=== PATIENT | male | born 1950 | race Caucasian/White ===

== ENCOUNTER → 2019-07-13 | Outpatient (CLI) | payer OTHER ==
[~2019-07-13] MED LIST: ACET325 PO; ACYC400; ACYC400 PO; ASCO500; ASPI81EC; BUPR150ER PO; CALCIUM CHOLECALCIFE; CEPH500 PO; Cymbalta30 MG; DOXA2; DOXA4 PO; DOXY100 PO; FERR325 PO; FISH1000 PO; FURO40; HYDACE10B PO; HYDACE5 PO; IRBHYD300; LEVFLO500 PO; MELO7.5 PO; METF500; METO100ER; METO25ER PO; MORP30 PO; MORP50ER PO; MULVITMINF; MULVITMINF PO; NAPR550 PO; OLME20; OXYACE5T PO; PARO30 PO; PIRO20; POTCHL20ER; RXHYDACE PO; SAW PALMETTO; TIOT18 IH; WARF4 PO
[2019-07-13 16:41] LABS: Bilirubin, Urine Neg (Neg); Blood, Urine Neg (Neg); Glucose Qualitative, Urine Neg (Neg); Ketones, Urine Neg (Neg); Leukocyte Esterase, Urine Neg (Neg); Nitrite, Urine Neg (Neg); Protein, Urine Neg (Neg); Specific Gravity, Urine 1.015 (1.003-1.022); Urobilinogen, Urine NORM (Normal)
[2019-07-13 16:47] LABS: Appearance, Urine Clear (Clear); Color, Urine Yellow (P-Yellow)
== END | disposition home or self-care (01) ==
LOC: LAB SHORT 15:56 → LAB 15:56
PROVIDERS: Internal Medicine
DX: I10 Essential (primary) hypertension (principal)
CPT/HCPCS: 81003; 82570; 84156

== ENCOUNTER 2020-01-16 08:37 | Day surgery (SDC) | payer OTHER ==
[~2020-01-16] VITALS: Ht 182.9 cm; Wt 132.0 kg
[~2020-01-16 08:37] MED LIST changes: +ABILIFY MYCITE PO; +AMLODIPINE-OLM1 EAC4 PO; +ATOR20 PO; +Aspir 8181 MG PO; +CHLO25B PO; +COMBIVENT RESPIM4 G1 INH; +FLUT1DIS8 INH; +IPRAT-ALBUT 0.5-3 ML INH; +K-Dur10 MEQ PO; +LOSA50 PO; +NITR.4SL SL; +Nitroglycerin1 EAC3 TOP; +OMEP20ER PO; +PROAIR RESPICL90 MCG INH; +PROZAC20 M1 PO; +SPIR25 PO; +TIOT18 INH; +VALA500 PO
--- NOTE | 2020-01-16 12:40 | NUR ---
DISCHARGE INSTRUCTION GIVEN TO PATIENT. DENIES ANY DISCOMFORT AT SITE. SITE SOFT AND NONTENDER NO SWELLING NO BLEEDING.
--- NOTE | 2020-01-16 13:04 | NUR ---
PATIENT ARRIVED TO RECVERY ROOM VIA RECLINER. A&O. TR BAND IN PLACE WITH 10 CC OF AIR. SITE CLEAR. PATIENT DENIES DISCOMFORT.
--- NOTE | 2020-01-16 15:56 | NUR ---
PATIENT DRESSED WITH HELP FROM . IV DCED WITH CATHETER INTACT. PATIENT AND VERBALIZED UNDERSTANDING OF DISCHARGE INSTRUCTIONS AND DENIED ANY QUESTIONS. TR BAND REMOVED FROM RIGHT RADIAL SITE. SITE SOFT AND NONTENDER. DRESSING APPLIED AND ARM BOARD PLACED. A SLING WAS PLACED TO RIGHT ARM WITH INSTRUCTION. IV SITE DCED WITH CATHETER INTACT. PATIENT DISCHARGED VIA WHEEL CHAIR WITH .
== END 2020-01-16 22:49 | disposition home or self-care (01) ==
LOC: MHTC 08:37
PROC: 4A023N7 Measurement of Cardiac Sampling and Pressure, Left Heart, Percutaneous Approach (ICD-10-PCS; principal; 2020-01-16)
PROC: B2111ZZ Fluoroscopy of Multiple Coronary Arteries using Low Osmolar Contrast (ICD-10-PCS; principal; 2020-01-16)
PROC: B2151ZZ Fluoroscopy of Left Heart using Low Osmolar Contrast (ICD-10-PCS; principal; 2020-01-16)
DX: I25.119 Atherosclerotic heart disease of native coronary artery with unspecified angina pectoris (principal); I47.1 Supraventricular tachycardia; I10 Essential (primary) hypertension; G43.909 Migraine, unspecified, not intractable, without status migrainosus; J44.9 Chronic obstructive pulmonary disease, unspecified; G47.33 Obstructive sleep apnea (adult) (pediatric); Z79.899 Other long term (current) drug therapy; Z79.51 Long term (current) use of inhaled steroids; Z87.891 Personal history of nicotine dependence
CPT/HCPCS: 93005; 93010; 93458; 99152; C1769; C1894; J1644; J2250; J3010; J7030; J7050; Q9967

== ENCOUNTER → 2020-10-28 | Outpatient (CLI) | payer OTHER ==
[2020-10-31 09:26] LABS: Stool Occult Bld Immuno 1 Negative (NEGATIVE)
== END | disposition home or self-care (01) ==
LOC: LAB 15:00 → LAB SHORT 15:00
PROVIDERS: Physician Assistant
DX: Z12.11 Encounter for screening for malignant neoplasm of colon (principal)
CPT/HCPCS: 82274

== ENCOUNTER 2021-09-04 06:34 | Day surgery (SDC) | payer OTHER ==
[~2021-09-04] VITALS: Ht 188 cm; Wt 115.3 kg
--- NOTE | 2021-09-04 08:46 | NUR ---
09/04/21 0846 Den Leo BUPIVACAINE 0.5% 30 MLS MIXED W/ EPI 0.15 ML TO MAKE BUPIVACAINE 0.5% 1:200,000 FOR INJECTION AT OPSITE BY DR ALCALA.
--- NOTE | 2021-09-04 10:32 | NUR ---
09/04/21 1032 CELESTE ANDINO TRANSFER OF CARE FROM [facility] TO [facility] AT 1031. END NOTE [facility].RDS
== END 2021-09-04 10:52 | disposition home or self-care (01) ==
LOC: ORSCSDS 06:34
PROVIDERS: Orthopaedic Surgery
PROC: 0JBM0ZX Excision of Left Upper Leg Subcutaneous Tissue and Fascia, Open Approach, Diagnostic (ICD-10-PCS; principal; 2021-09-04 08:15)
DX: M71.352 Other bursal cyst, left hip (principal); I10 Essential (primary) hypertension; G47.33 Obstructive sleep apnea (adult) (pediatric); J44.9 Chronic obstructive pulmonary disease, unspecified; Z87.891 Personal history of nicotine dependence; Z79.899 Other long term (current) drug therapy
CPT/HCPCS: 88304; A9270; J0171; J0690; J1100; J2250; J2405; J2704; J3010; J7120

== ENCOUNTER 2022-09-15 17:04 | Emergency (ER) | payer OTHER ==
[~2022-09-15] VITALS: Ht 188 cm; Wt 108.9 kg
[2022-09-15 18:04] LABS: BASOPHILS ABSOLUTE AUTO 0.03 K/mm3 (0.00-0.23); BASOPHILS PERCENT AUTO 0 % (0-2); EOSINOPHILS ABSOLUTE AUTO 0.06 K/mm3 (0.00-0.68); EOSINOPHILS PERCENT AUTO 1 % (0-6); Hematocrit 46.1 % (37.0-53.0); Hemoglobin 17.1 g/dL (13.5-17.5); IMMATURE GRAN ABSOLUTE AUTO 0.06 K/mm3 (0.00-0.10); IMMATURE GRAN PERCENT AUTO 1 % (0-1); LYMPHOCYTES ABSOLUTE AUTO 2.67 K/mm3 (0.84-5.20); LYMPHOCYTES PERCENT AUTO 22 % (21-46); MONOCYTES ABSOLUTE AUTO 0.99 K/mm3 (0.16-1.47); MONOCYTES PERCENT AUTO 8 % (4-13); Mean Corpuscular HGB 33.5 pg (26.0-34.0); Mean Corpuscular HGB Conc 37.1 g/dL (31.5-36.5); Mean Corpuscular Volume 90 fL (80-100); Mean Platelet Volume 10.1 fL (9.1-12.4); NEUTROPHILS ABSOLUTE AUTO 8.15 K/mm3 (1.96-9.15); NEUTROPHILS PERCENT AUTO 68 % (41-73); Platelet Count 247 K/mm3 (150-400); RDW Coefficient Variation 13.2 % (11.7-14.2); RDW Standard Deviation 43.8 fL (35.1-46.3); White Blood Cell Count 11.96 K/mm3 (4.00-11.30)
[2022-09-15 18:23] LABS: Albumin, Blood 3.9 g/dL (3.4-5.0); Albumin/Globulin Ratio 0.8 (0.8-1.8); Bilirubin, Total 1.1 mg/dL (0.1-1.0); Bun/Creatinine Ratio 17.1 (12.0-20.0); Calcium, Blood 9.4 mg/dL (8.5-10.1); Creatinine, Blood 1.58 mg/dL (0.60-1.20); Globulin, Blood 4.8 g/dL (2.2-4.0); Magnesium, Blood 1.9 mg/dL (1.6-2.4); Potassium, Blood 2.5 mmol/L (3.5-5.5); Total Protein, Blood 8.7 g/dL (6.4-8.2)
[2022-09-15 23:00] VITALS: BP 117/93
== END 2022-09-15 23:08 | disposition home or self-care (01) ==
LOC: ER 17:04
PROVIDERS: Physician Assistant
DX: E87.6 Hypokalemia (principal); N28.9 Disorder of kidney and ureter, unspecified; J44.9 Chronic obstructive pulmonary disease, unspecified; I10 Essential (primary) hypertension
CPT/HCPCS: 71046; 80053; 83735; 85025; 93005; 93010; 96374; 99284-25; A9270; J3480; J7030

== ENCOUNTER 2022-10-13 16:56 | Emergency (ER) | payer OTHER ==
[~2022-10-13] VITALS: Ht 188 cm; Wt 111.1 kg
[2022-10-13 17:59] LABS: BASOPHILS ABSOLUTE AUTO 0.03 K/mm3 (0.00-0.23); BASOPHILS PERCENT AUTO 0 % (0-2); EOSINOPHILS ABSOLUTE AUTO 0.09 K/mm3 (0.00-0.68); EOSINOPHILS PERCENT AUTO 1 % (0-6); Hematocrit 44.6 % (37.0-53.0); Hemoglobin 15.8 g/dL (13.5-17.5); IMMATURE GRAN ABSOLUTE AUTO 0.03 K/mm3 (0.00-0.10); IMMATURE GRAN PERCENT AUTO 0 % (0-1); LYMPHOCYTES ABSOLUTE AUTO 2.55 K/mm3 (0.84-5.20); LYMPHOCYTES PERCENT AUTO 30 % (21-46); MONOCYTES ABSOLUTE AUTO 0.79 K/mm3 (0.16-1.47); MONOCYTES PERCENT AUTO 9 % (4-13); Mean Corpuscular HGB 33.1 pg (26.0-34.0); Mean Corpuscular HGB Conc 35.4 g/dL (31.5-36.5); Mean Corpuscular Volume 94 fL (80-100); NEUTROPHILS ABSOLUTE AUTO 5.14 K/mm3 (1.96-9.15); NEUTROPHILS PERCENT AUTO 60 % (41-73); Platelet Count 205 K/mm3 (150-400); RDW Coefficient Variation 12.9 % (11.7-14.2); RDW Standard Deviation 45.1 fL (35.1-46.3); Red Blood Cell Count 4.77 M/mm3 (4.30-5.90); White Blood Cell Count 8.63 K/mm3 (4.00-11.30)
[2022-10-13 18:13] LABS: C-REACTIVE PROTEIN, EXT RANGE 0.917 mg/dL (0.000-0.300)
[2022-10-13 18:16] LABS: Albumin, Blood 3.7 g/dL (3.4-5.0); Albumin/Globulin Ratio 0.9 (0.8-1.8); Bilirubin, Total 0.6 mg/dL (0.1-1.0); Bun/Creatinine Ratio 12.7 (12.0-20.0); Calcium, Blood 8.8 mg/dL (8.5-10.1); Creatinine, Blood 1.1 mg/dL (0.60-1.20); Globulin, Blood 3.9 g/dL (2.2-4.0); Potassium, Blood 4.2 mmol/L (3.5-5.5); Total Protein, Blood 7.6 g/dL (6.4-8.2)
[2022-10-13] MEDS ORDERED: ZANAFLEX413 PO (20:40)
[2022-10-13] MEDS ORDERED: Potassium Chlo20 ME1 PO (20:41)
[2022-10-13] MEDS ORDERED: VENLAFAXINE HC225 MG PO (20:41)
[2022-10-13 22:00] VITALS: BP 121/82
== END 2022-10-13 23:00 | disposition home or self-care (01) ==
LOC: ER 16:56
PROVIDERS: Physician Assistant
DX: H54.7 Unspecified visual loss (principal); I10 Essential (primary) hypertension; E78.5 Hyperlipidemia, unspecified; J44.9 Chronic obstructive pulmonary disease, unspecified; Z79.899 Other long term (current) drug therapy; Z79.82 Long term (current) use of aspirin; Z96.641 Presence of right artificial hip joint; Z96.612 Presence of left artificial shoulder joint; Z96.611 Presence of right artificial shoulder joint
CPT/HCPCS: 70450; 80053; 85025; 86140; 93005; 93010; 99284-25

== ENCOUNTER 2023-09-09 23:07 | Inpatient (IN) | payer OTHER ==
[~2023-09-09] VITALS: Ht 180.3 cm; Wt 106.6 kg
[~2023-09-09 23:07] MED LIST changes: -ATOR20 PO; +ATOR40TA PO; +Potassium Chlo20 ME1 PO; +VENLAFAXINE HC225 MG PO; +ZANAFLEX413 PO
[2023-09-09] MEDS ORDERED: NS 1,000 ML IV SCH (23:20)
[2023-09-09 23:36] LABS: BASOPHILS ABSOLUTE AUTO 0.03 K/mm3 (0.00-0.23); BASOPHILS PERCENT AUTO 0 % (0-2); EOSINOPHILS ABSOLUTE AUTO 0.08 K/mm3 (0.00-0.68); EOSINOPHILS PERCENT AUTO 1 % (0-6); Hematocrit 38.6 % (37.0-53.0); Hemoglobin 13.4 g/dL (13.5-17.5); IMMATURE GRAN ABSOLUTE AUTO 0.01 K/mm3 (0.00-0.10); IMMATURE GRAN PERCENT AUTO 0 % (0-1); LYMPHOCYTES ABSOLUTE AUTO 1.26 K/mm3 (0.84-5.20); LYMPHOCYTES PERCENT AUTO 17 % (21-46); MONOCYTES ABSOLUTE AUTO 0.55 K/mm3 (0.16-1.47); MONOCYTES PERCENT AUTO 8 % (4-13); Mean Corpuscular HGB 32.1 pg (26.0-34.0); Mean Corpuscular HGB Conc 34.7 g/dL (31.5-36.5); Mean Corpuscular Volume 92 fL (80-100); Mean Platelet Volume 9.9 fL (9.1-12.4); NEUTROPHILS ABSOLUTE AUTO 5.42 K/mm3 (1.96-9.15); NEUTROPHILS PERCENT AUTO 74 % (41-73); Platelet Count 168 K/mm3 (150-400); RDW Coefficient Variation 13.8 % (11.7-14.2); RDW Standard Deviation 46.6 fL (35.1-46.3); Red Blood Cell Count 4.18 M/mm3 (4.30-5.90); White Blood Cell Count 7.35 K/mm3 (4.00-11.30)
[2023-09-09 23:59] LABS: Albumin, Blood 3.4 g/dL (3.4-5.0); Albumin/Globulin Ratio 0.9 (0.8-1.8); Bilirubin, Total 0.9 mg/dL (0.1-1.0); Bun/Creatinine Ratio 16.1 (12.0-20.0); Calcium, Blood 7.2 mg/dL (8.5-10.1); Creatinine, Blood 0.99 mg/dL (0.60-1.20); Globulin, Blood 3.9 g/dL (2.2-4.0); Total Protein, Blood 7.3 g/dL (6.4-8.2)
[2023-09-10] LABS: Magnesium, Blood 0.7 mg/dL (1.6-2.4)
[2023-09-10] MEDS ORDERED: Magnesium Sulf 2 GM/Water 50ML 50 ML IV ONE ×2 (00:13→13:55)
[2023-09-10] MEDS ORDERED: TAMSULOSIN HCL0.4 M1 PO (00:35)
[2023-09-10] MEDS ORDERED: QUETIAPINE FUMA5012 PO (00:37)
[2023-09-10] MEDS ORDERED: ALLO300 PO (00:37)
[2023-09-10] MEDS ORDERED: VENL75ER PO (00:37)
[2023-09-10] MEDS ORDERED: Acetaminophen 325 MG TABLET PO PRN (01:10)
[2023-09-10 01:44] LABS: Source, Urine Voided
[2023-09-10 01:48] LABS: Bilirubin, Urine Neg (Neg); Blood, Urine Neg (Neg); Glucose Qualitative, Urine Neg (Neg); Ketones, Urine Neg (Neg); Leukocyte Esterase, Urine Neg (Neg); Nitrite, Urine Neg (Neg); Protein, Urine 1+ (Neg); Urobilinogen, Urine 3+ (Normal)
[2023-09-10] MEDS ORDERED: Albuterol HFA200 ACT/6.7 GM INH INH SCH (01:55)
[2023-09-10 02:01] LABS: Appearance, Urine Clear (Clear); Color, Urine Yellow (P-Yellow)
[2023-09-10] MEDS ORDERED: AMLO10 PO (02:26)
[2023-09-10] MEDS ORDERED: TIZA4 PO (02:27)
[2023-09-10] MEDS ORDERED: SPIR25 PO (02:28)
[2023-09-10] MEDS ORDERED: LOVA40 PO (02:28)
[2023-09-10] MEDS ORDERED: CLOP75 PO (02:31)
[2023-09-10 02:35] VITALS: BP 157/107
[2023-09-10] MEDS ORDERED: TRAM50 PO (02:35)
[2023-09-10] MEDS ORDERED: Nitroglycerin Patch 0.2MG / HR TOP SCH (03:00)
[2023-09-10 05:26] LABS: BASOPHILS ABSOLUTE AUTO 0.02 K/mm3 (0.00-0.23); BASOPHILS PERCENT AUTO 0 % (0-2); EOSINOPHILS ABSOLUTE AUTO 0.01 K/mm3 (0.00-0.68); EOSINOPHILS PERCENT AUTO 0 % (0-6); Hematocrit 39.2 % (37.0-53.0); Hemoglobin 13.5 g/dL (13.5-17.5); IMMATURE GRAN ABSOLUTE AUTO 0.03 K/mm3 (0.00-0.10); IMMATURE GRAN PERCENT AUTO 0 % (0-1); LYMPHOCYTES ABSOLUTE AUTO 1.28 K/mm3 (0.84-5.20); LYMPHOCYTES PERCENT AUTO 18 % (21-46); MONOCYTES ABSOLUTE AUTO 0.59 K/mm3 (0.16-1.47); MONOCYTES PERCENT AUTO 8 % (4-13); Mean Corpuscular HGB 31.6 pg (26.0-34.0); Mean Corpuscular HGB Conc 34.4 g/dL (31.5-36.5); Mean Corpuscular Volume 92 fL (80-100); Mean Platelet Volume 9.7 fL (9.1-12.4); NEUTROPHILS ABSOLUTE AUTO 5.28 K/mm3 (1.96-9.15); NEUTROPHILS PERCENT AUTO 73 % (41-73); Platelet Count 141 K/mm3 (150-400); RDW Coefficient Variation 13.6 % (11.7-14.2); RDW Standard Deviation 45.8 fL (35.1-46.3); Red Blood Cell Count 4.27 M/mm3 (4.30-5.90); White Blood Cell Count 7.21 K/mm3 (4.00-11.30)
--- NOTE | 2023-09-10 06:14 | NUR ---
Shift Summary Pt admitted to this unit from ED for Hypomagnesemia. He was at [facility] and fell on his bottom and wasn't able to get up for 30 minutes until EMS arrived. He rcvd 1 bag of IV Mag in the ED. He is AOx4, still weak and he is shakey. He is currently on bedrest but can increase his activity level as he starts feeling better, his BL is indepenent with a cane. He is on Tele running SR in the 70's with PACs and PVCs. No events called in from telemetry. I put a nitro patch on his chest as ordered, he wears a patch 12 hours on and 12 hours off at home, he states for blood pressure. He is having difficulty sleeping.
[2023-09-10 06:19] LABS: Albumin, Blood 3.3 g/dL (3.4-5.0); Albumin/Globulin Ratio 0.9 (0.8-1.8); Bilirubin, Total 0.8 mg/dL (0.1-1.0); Bun/Creatinine Ratio 15.6 (12.0-20.0); Calcium, Blood 7.1 mg/dL (8.5-10.1); Creatinine, Blood 0.83 mg/dL (0.60-1.20); Globulin, Blood 3.8 g/dL (2.2-4.0); Magnesium, Blood 1.3 mg/dL (1.6-2.4); Phosphorus, Blood 2.9 mg/dL (2.5-4.9); Potassium, Blood 3.4 mmol/L (3.5-5.5); Total Protein, Blood 7.1 g/dL (6.4-8.2)
[2023-09-10 07:19] VITALS: BP 162/95
[2023-09-10] MEDS ORDERED: Potassium Chloride 20 MEQ TabCR PO ONE ×2 (07:45→13:55)
[2023-09-10] MEDS ORDERED: CALCIUM GLUC IN NACL, ISO-OSM 50 ML IV ONE (07:45)
[2023-09-10] MEDS ORDERED: TraMADol HCl 50 MG Tab PO PRN (07:50)
[2023-09-10] MEDS ORDERED: TiZANidine HCl 4 MG Tab PO PRN (07:50)
[2023-09-10] MEDS ORDERED: Pravastatin Sodium 20 MG Tab PO SCH (09:00)
[2023-09-10] MEDS ORDERED: Enoxaparin 40 MG/0.4 ML SYR SC SCH (09:00)
[2023-09-10] MEDS ORDERED: Clopidogrel Bisulfate 75 MG Tab PO SCH (09:00)
[2023-09-10] MEDS ORDERED: Venlafaxine HCl 75 MG CapCR PO SCH ×2 (09:00)
[2023-09-10] MEDS ORDERED: Tamsulosin HCl 0.4 MG Cap PO SCH (09:00)
[2023-09-10] MEDS ORDERED: Allopurinol 300 MG Tab PO SCH (09:00)
[2023-09-10] MEDS ORDERED: AmLODIPine Besylate 5 MG Tab PO SCH (09:00)
[2023-09-10] MEDS ORDERED: NS 250 ML IV PRN (09:20)
[2023-09-10 13:39] LABS: Potassium, Blood 3.5 mmol/L (3.5-5.5)
[2023-09-10 15:15] VITALS: BP 158/100
[2023-09-10 19:32] VITALS: BP 169/104
--- NOTE | 2023-09-10 19:34 | NUR ---
SUMMARY- PT A/O X4. CONT WITH INTERMITTANT TREMORS AND SHAKINESS. MAGNESIUM AND KCL REPLACEMENT TODAY. GOT UP TO THE BSC 2 GAIT WALKER SBA. PT ABLE TO STAND WITH HELP BALANCING, VERY WEAK AND SHAKI. BEDREST MOST OF THE DAY. PAIN IN PELVIC REGION. X-RAY COMPLETED THIS PM. MEDICATED ONCE TODAY WITH ULTRAM AND XANIFLEX, PT STATES HELPFUL FOR DISCOMRORT. REPORTED TO NOC [facility]
[2023-09-10] MEDS ORDERED: Albuterol HFA200 ACT/6.7 GM INH INH PRN (20:05)
[2023-09-10] MEDS ORDERED: QUEtiapine Fumarate 50 MG TAB PO SCH (21:00)
[2023-09-10] MEDS ORDERED: Ondansetron HCl 2 MG / ML 2ML Vial IV PRN (22:30)
[2023-09-11 03:23] VITALS: BP 157/95
[2023-09-11 04:44] LABS: Bun/Creatinine Ratio 19.9 (12.0-20.0); Calcium, Blood 7.8 mg/dL (8.5-10.1); Creatinine, Blood 0.7 mg/dL (0.60-1.20); Magnesium, Blood 1.3 mg/dL (1.6-2.4); Potassium, Blood 3.5 mmol/L (3.5-5.5)
--- NOTE | 2023-09-11 06:12 | NUR ---
SHIFT SUMMARY 73 YR M ADMITTED ON 09/10/23. FULL CODE. NO ACUTE CHANGES THIS SHIFT. PT HAD SOME N/V EARLY IN SHIFT. HOSPITALIST NOTIFIED AND ORDER OBTAINED FOR ZOFRAN. PT STATED HE FELT MUCH BETTER AFTER RECEIVING IT AND HE SLEPT FOR THE REST OF THE NIGHT. HE IS PLEASANT AND COOPERATIVE WITH CARE. BED IN LOW POSITION AND CALL LIGHT IN REACH. WILL CONTINUE TO MONITOR.
[2023-09-11] MEDS ORDERED: Potassium Chloride 20 MEQ TabCR PO ONE (07:35)
[2023-09-11] MEDS ORDERED: Magnesium Sulf 2 GM/Water 50ML 50 ML IV ONE (07:35)
[2023-09-11 07:58] VITALS: BP 146/93
[2023-09-11] MEDS ORDERED: Lisinopril 10 MG Tab PO SCH (09:00)
[2023-09-11] MEDS ORDERED: Aspirin 81 MG Chew PO SCH (09:00)
[2023-09-11] MEDS ORDERED: ASPI81CH PO (11:45)
[2023-09-11] MEDS ORDERED: Prinivil10 MG PO (11:46)
[2023-09-11] MEDS ORDERED: MAGNESIUM OXID500 MG (11:46)
--- NOTE | 2023-09-11 13:49 | NUR ---
REGAURDING DISCHARGE- CALLED DR BARNARD TO NOTIFY THAT PT IS UNABLE TO AMBULATE WITHOUT GROSS MOTOR TREMORS PREVENTING PT FROM AMBULATING. DR ROJAS'D HOLD ON DISCHARGE UNTIL PHYSICAL THERAPY EVAL. HE IS GOING TO DC THE TIXANADINE AND GIVE HIM TIME TODAY TO RECOUPE AND RE EVAL IN AM.
[2023-09-11 15:27] VITALS: BP 126/89
--- NOTE | 2023-09-11 15:58 | NUR ---
SUMMARY- PT A/O X4. MAGNESIUM THIS AM WAS 1.3, ADMIN 2GM MG IV. ORDERS FOR DIACHARGE WRITTEN BUT DR BARNARD WAS NOT AWARE OF PT'S CONTINUED ACTIVITY DEFICITS IN RELATION TO GROSS MOTOR TREMOR BECAUSE WHEN DR BARNARD EVALUATED PT, HE STOOD UP STEADY AND DID NOT SEE THE SAME GROSS MOTOR TREMOR THAT RN EVALUATED. PHYSICAL THERAPY ASSESSED PT ON SAT AND RECOMMENDED SNF WITH CURRENT MOBILITY ABILITY. DR BARNARD OK FOR PT TO STAY ANOTHER NIGHT AND RE-EVAL IN THE AM. PT TOLERATING FOOD AND FLUIDS. USING URINAL, AND 2 PERSON PIVOT TX TO BSC. NOT FEELING STONG ENOUGH TO CARE FOR SELF AT HOME, HE HAS NOONE TO HELP HIM - CHRONIC BACK PAIN MANAGED WITH TRAMADOL IN AM AND XANIFLEX WHICH NOW DC'D SO IT DOESNT HINDER PT'S STRENGTH IN HEALING. WILL REPORT JONO CONNOLLY
[2023-09-11 19:37] VITALS: BP 122/93
--- NOTE | 2023-09-11 21:07 | NUR ---
2018 PT LYING IN BED, AWAKE, REPORTS BACK PAIN OF 5/10, GAVE ULTRAM, WILL EVAL FOR EFFECT. NO OTHER APPARENT SIGNS OF DISTRESS. CALL LIGHT IS IN REACH.
--- NOTE | 2023-09-12 02:39 | NUR ---
0000 PT LYING IN BED, AWAKE, WATCHING TV. NO APPARENT SIGNS OF DISTRESS. PT DENIES NEED FOR ANYTHING AT THIS TIME. CALL LIGHT IS IN REACH.
--- NOTE | 2023-09-12 02:40 | NUR ---
09/11/23 2200 PT LYING IN BED, AWAKE, WATCHING TV. NO APPARENT SIGNS OF DISTRES. CALL LIGHT IS IN REACH.
--- NOTE | 2023-09-12 02:40 | NUR ---
0200 PT LYING IN BED, EYES CLOSED, APPEARS TO BE RESTING. BREATHING IS EVEN, UNLABORED. NO APPARENT SIGNS OF DISTRESS. CALL LIGHT IS IN REACH.
--- NOTE | 2023-09-12 03:53 | NUR ---
PT LYING IN BED, EYES CLOSED, APPEARS TO BE RESTING. BREATHING IS EVEN, UNLABORED. NO APPARENT SIGNS OF DISTRESS. CALL LIGHT IS IN REACH.
--- NOTE | 2023-09-12 03:53 | NUR ---
PT IS AAO X 4, ON RA. REPORTS CHRONIC BACK PAIN, GOT ULTRAM AT HS.
[2023-09-12 04:51] VITALS: BP 129/82
[2023-09-12 05:18] LABS: Bun/Creatinine Ratio 21.8 (12.0-20.0); Calcium, Blood 8.2 mg/dL (8.5-10.1); Creatinine, Blood 0.78 mg/dL (0.60-1.20); Magnesium, Blood 2.1 mg/dL (1.6-2.4); Potassium, Blood 3.7 mmol/L (3.5-5.5)
--- NOTE | 2023-09-12 05:35 | NUR ---
PT LYING IN BED, EYES CLOSED, APPEARS TO BE RESTING. BREATHING IS EVEN, UNLABORED. NO APPARENT SIGNS OF DISTRESS. CALL LIGHT IS IN REACH. NO OTHER CHANGES THIS SHIFT.
[2023-09-12 07:57] VITALS: BP 121/94
--- NOTE | 2023-09-12 13:51 | NUR ---
PER PT AND STRIKE PLANNING APPLICATIONS, PT DID NOT HAVE TREMORS WHEN HE AMBULATED TO THE BATHROOM AND DURING SHOWER
[2023-09-12 15:28] VITALS: BP 133/85
--- NOTE | 2023-09-12 16:16 | NUR ---
PT DISCHARGED HOME WITH HOME HEALTH. ALERT AND ORIENTED X4, ABLE TO MAKE NEEDS KNOWN. DISCHARGE INSTRUCTIONS DISCUSSED WITH PT. NO QUESTIONS OR CONCERNS AT THIS TIME. PT TAKEN DOWN TO MEET HIS RIDE BY WHEELCHAIR
== END 2023-09-12 16:06 | disposition home health service (06) | DRG 641 ==
LOC: ER 23:07 → MEDS 09-10 01:10 → ENPENDDIS 09-11 11:22 → MEDS 09-11 21:32
PROVIDERS: Emergency Medicine; Family Medicine Adult Medicine; Internal Medicine; ADMIT Student in an Organized Health Care Education/Training Program
DX: E83.42 Hypomagnesemia (principal); F32.A Depression, unspecified; R53.1 Weakness; K21.9 Gastro-esophageal reflux disease without esophagitis; I10 Essential (primary) hypertension; E78.5 Hyperlipidemia, unspecified; M62.838 Other muscle spasm; E87.6 Hypokalemia; E83.51 Hypocalcemia; T47.1X5A Adverse effect of other antacids and anti-gastric-secretion drugs, initial encounter; J44.9 Chronic obstructive pulmonary disease, unspecified; M19.90 Unspecified osteoarthritis, unspecified site; Z86.718 Personal history of other venous thrombosis and embolism; Z87.891 Personal history of nicotine dependence; Z85.820 Personal history of malignant melanoma of skin; Z86.14 Personal history of Methicillin resistant Staphylococcus aureus infection; Z79.899 Other long term (current) drug therapy
CPT/HCPCS: 36415; 73502; 80048; 80053; 82330; 82550; 83605; 83735; 84100; 84132; 84484; 85025; 93005; 93010; 94760; 96361; 96374; 97116; 97161; 97530; 99285-25; A9270; J0612; J2405; J3475; J7030

== ENCOUNTER 2023-11-25 11:51 | Emergency (ER) | payer OTHER ==
[~2023-11-25] VITALS: Ht 182.9 cm; Wt 104.3 kg
[~2023-11-25 11:51] MED LIST changes: +ALLO300 PO; +AMLO10 PO; +ASPI81CH PO; +CLOP75 PO; +LOVA40 PO; +MAGNESIUM OXID500 MG; +Prinivil10 MG PO; +QUETIAPINE FUMA5012 PO; +TAMSULOSIN HCL0.4 M1 PO; +TIZA4 PO; +TRAM50 PO; +VENL75ER PO
[2023-11-25] MEDS ORDERED: Ketorolac Tromethamine 30mg Vial IV ONE (12:30)
[2023-11-25 12:55] LABS: BASOPHILS ABSOLUTE AUTO 0.03 K/mm3 (0.00-0.23); BASOPHILS PERCENT AUTO 0 % (0-2); EOSINOPHILS PERCENT AUTO 1 % (0-6); Hematocrit 43.6 % (37.0-53.0); IMMATURE GRAN ABSOLUTE AUTO 0.04 K/mm3 (0.00-0.10); IMMATURE GRAN PERCENT AUTO 0 % (0-1); LYMPHOCYTES ABSOLUTE AUTO 1.54 K/mm3 (0.84-5.20); LYMPHOCYTES PERCENT AUTO 16 % (21-46); MONOCYTES ABSOLUTE AUTO 0.67 K/mm3 (0.16-1.47); MONOCYTES PERCENT AUTO 7 % (4-13); Mean Corpuscular HGB 31.6 pg (26.0-34.0); Mean Corpuscular HGB Conc 34.4 g/dL (31.5-36.5); Mean Corpuscular Volume 92 fL (80-100); Mean Platelet Volume 10.2 fL (9.1-12.4); NEUTROPHILS ABSOLUTE AUTO 7.43 K/mm3 (1.96-9.15); NEUTROPHILS PERCENT AUTO 76 % (41-73); Platelet Count 182 K/mm3 (150-400); RDW Coefficient Variation 13.4 % (11.7-14.2); Red Blood Cell Count 4.75 M/mm3 (4.30-5.90); White Blood Cell Count 9.81 K/mm3 (4.00-11.30)
[2023-11-25 13:16] LABS: Albumin, Blood 3.4 g/dL (3.4-5.0); Albumin/Globulin Ratio 0.9 (0.8-1.8); Bilirubin, Total 0.9 mg/dL (0.1-1.0); Bun/Creatinine Ratio 11.1 (12.0-20.0); Calcium, Blood 8.8 mg/dL (8.5-10.1); Creatinine, Blood 0.9 mg/dL (0.60-1.20); Globulin, Blood 3.8 g/dL (2.2-4.0); Potassium, Blood 3.8 mmol/L (3.5-5.5); Total Protein, Blood 7.2 g/dL (6.4-8.2)
[2023-11-25 15:10] VITALS: BP 110/89
[2023-11-25] MEDS ORDERED: Pregabalin 75 MG Cap PO ONE (16:30)
[2023-11-25] MEDS ORDERED: VALA500 PO (16:44)
[2023-11-25] MEDS ORDERED: PRED20 PO (16:44)
[2023-11-25] MEDS ORDERED: PREG75 PO (16:44)
== END 2023-11-25 16:52 | disposition home or self-care (01) ==
LOC: ER 11:51
PROVIDERS: Physician Assistant
DX: B02.21 Postherpetic geniculate ganglionitis (principal); I10 Essential (primary) hypertension; J44.89 Other specified chronic obstructive pulmonary disease; E78.5 Hyperlipidemia, unspecified; K21.9 Gastro-esophageal reflux disease without esophagitis; Z87.891 Personal history of nicotine dependence; Z79.82 Long term (current) use of aspirin; Z79.899 Other long term (current) drug therapy
CPT/HCPCS: 70450; 80053; 85025; 96374; 99283-25; A9270; J1885

== ENCOUNTER 2024-01-24 12:31 | Emergency (ER) | payer MEDICARE ==
[~2024-01-24] VITALS: Ht 182.9 cm; Wt 106.6 kg
[~2024-01-24 12:31] MED LIST changes: +PRED20 PO; +PREG75 PO
[2024-01-24 13:19] LABS: BASOPHILS ABSOLUTE AUTO 0.03 K/mm3 (0.00-0.23); BASOPHILS PERCENT AUTO 0 % (0-2); EOSINOPHILS ABSOLUTE AUTO 0.05 K/mm3 (0.00-0.68); EOSINOPHILS PERCENT AUTO 1 % (0-6); Hematocrit 43.4 % (37.0-53.0); IMMATURE GRAN ABSOLUTE AUTO 0.03 K/mm3 (0.00-0.10); IMMATURE GRAN PERCENT AUTO 0 % (0-1); LYMPHOCYTES ABSOLUTE AUTO 1.43 K/mm3 (0.84-5.20); LYMPHOCYTES PERCENT AUTO 16 % (21-46); MONOCYTES ABSOLUTE AUTO 0.82 K/mm3 (0.16-1.47); MONOCYTES PERCENT AUTO 9 % (4-13); Mean Corpuscular HGB 31.3 pg (26.0-34.0); Mean Corpuscular HGB Conc 34.6 g/dL (31.5-36.5); Mean Corpuscular Volume 90 fL (80-100); Mean Platelet Volume 10.2 fL (9.1-12.4); NEUTROPHILS ABSOLUTE AUTO 6.48 K/mm3 (1.96-9.15); NEUTROPHILS PERCENT AUTO 73 % (41-73); Platelet Count 158 K/mm3 (150-400); RDW Coefficient Variation 12.9 % (11.7-14.2); RDW Standard Deviation 42.4 fL (35.1-46.3); White Blood Cell Count 8.84 K/mm3 (4.00-11.30)
[2024-01-24 13:42] LABS: Albumin, Blood 3.6 g/dL (3.4-5.0); Albumin/Globulin Ratio 0.9 (0.8-1.8); Bilirubin, Total 1.1 mg/dL (0.1-1.0); Bun/Creatinine Ratio 12.6 (12.0-20.0); Calcium, Blood 8.9 mg/dL (8.5-10.1); Creatinine, Blood 0.88 mg/dL (0.60-1.20); Globulin, Blood 3.8 g/dL (2.2-4.0); Potassium, Blood 3.8 mmol/L (3.5-5.5); Total Protein, Blood 7.4 g/dL (6.4-8.2)
[2024-01-24] MEDS ORDERED: Ketorolac Tromethamine 30mg Vial IV ONE (17:50)
[2024-01-24] MEDS ORDERED: COLCHICINE0.6 MG PO (17:53)
[2024-01-24 18:19] VITALS: BP 158/89
== END 2024-01-24 18:20 | disposition home or self-care (01) ==
LOC: ER 12:31
PROVIDERS: Student in an Organized Health Care Education/Training Program
DX: M10.9 Gout, unspecified (principal); I10 Essential (primary) hypertension; J44.9 Chronic obstructive pulmonary disease, unspecified; E78.5 Hyperlipidemia, unspecified; K21.9 Gastro-esophageal reflux disease without esophagitis; Z86.718 Personal history of other venous thrombosis and embolism; Z87.891 Personal history of nicotine dependence; Z79.82 Long term (current) use of aspirin; Z79.899 Other long term (current) drug therapy
CPT/HCPCS: 80053; 83880; 85025; 96374; 99283-25; J1885

== ENCOUNTER 2024-03-03 12:36 | Emergency (ER) | payer MEDICARE ==
[~2024-03-03] VITALS: Ht 180.3 cm; Wt 104.3 kg
[~2024-03-03 12:36] MED LIST changes: +COLCHICINE0.6 MG PO
[2024-03-03 12:42] VITALS: BP 147/85
[2024-03-03] MEDS ORDERED: Colchicine 0.6 MG TAB PO ONE (14:05)
[2024-03-03] MEDS ORDERED: COLCHICINE0.6 MG PO (14:09)
== END 2024-03-03 14:13 | disposition home or self-care (01) ==
LOC: ER 12:36
DX: M10.9 Gout, unspecified (principal); Z87.891 Personal history of nicotine dependence
CPT/HCPCS: 73110; 99283-25; A9270